=== PATIENT | female | born 1945 | race Caucasian/White ===

== ENCOUNTER 2016-07-17 09:47 | Observation (INO) | payer MEDICARE ==
[2016-07-17 10:26] LABS: BASOPHILS 0.5 % (0.0-2.0); EOSINOPHILS 1.9 % (0.0-6.0); EOSINOPHILS# 0.1 X 10^3uL (0.0-0.4); HEMATOCRIT 36.7 % (36.0-48.0); HEMOGLOBIN 12.5 g/dL (12.0-16.0); LYMPHOCYTES 30.4 % (20.0-40.0); LYMPHOCYTES# 2.3 X 10^3uL (0.8-3.8); MEAN CELL VOLUME 90.8 fL (80.0-100.0); MEAN CORPUSCULAR HEMOGLOBIN 30.9 pg (29.0-35.0); MEAN PLATELET VOLUME 8.3 fL (7.4-10.4); MONOCYTES 7.9 % (2.0-10.0); MONOCYTES# 0.6 X 10^3uL (0.2-1.0); NEUTROPHILS 59.3 % (54.0-75.0); NEUTROPHILS# 4.5 X 10^3uL (2.6-6.7); PLATELET COUNT 300 X 10^3uL (130-440); RED BLOOD COUNT 4.04 X 10^6uL (4.20-6.10); RED CELL DISTRIBUTION WIDTH 12.8 % (11.5-14.5); WHITE BLOOD COUNT 7.5 X 10^3uL (3.9-10.7)
[2016-07-17 10:37] LABS: BLOOD UREA NITROGEN 14 mg/dL (7-17); CALCIUM 8.9 mg/dL (8.4-10.2); CHLORIDE 112 mmol/L (98-107); CREATININE 0.8 mg/dL (0.5-1.0); EST GLOMERULAR FILTRATION RATE > 60 mL/min; GLUCOSE 103 mg/dL (70-100); POTASSIUM 3.7 mmol/L (3.5-5.1); SODIUM 144 mmol/L (137-145)
[2016-07-17 10:50] LABS: TROPONIN I < 0.012 ng/mL (0.00-0.034)
[2016-07-17] MEDS ORDERED: FUROSEMIDE 20 MG/2 ML VIAL ONE ×2 (11:24→19:46)
--- NOTE | 2016-07-17 11:45 | RADIOLOGY REPORT ---
A limited single portable view of the chest is compared with prior film dated . The cardiac silhouette is stable and within normal limits. Central pulmonary vasculature is prominent. Patchy densities are seen at the left lung base. No fluid or pneumothorax is seen. IMPRESSION: 1. Prominent central pulmonary vasculature. 2. Nonspecific changes at the left lung base. Infiltrate versus edema. MTDD
[2016-07-17] MEDS ORDERED: HOME MEDICATION LIST NEEDED 1 EA EACH MC ONE (13:34)
--- NOTE | 2016-07-17 14:05 | ER PHYSICIAN DOCUMENTATION ---
Physician Documentation [facility] Name:Renay Kaufman Age:70 yrs Sex:Female :1945 Arrival Date:07/17/2016 Time:09:47 Bed4 Private MD: Alex Woodward Disposition: 07/17 10:39 Critical Care: not applicable. sc Disposition: 07/17/16 14:03 Admit ordered for Meredith Key. Preliminary diagnosis are Hypoxia, CHF (Congestive Heart Failure). - Bed requested for Medical/Surgical. - Condition is Fair. - Problem is an acute exacerbation. - Symptoms have improved. 23 HR OBS Yes HPI: 10:35 This 70 yrs old Female presents to ER via Walk In with complaints of sc Shortness Of Breath. 10:35 The patient has shortness of breath at rest. Onset: The symptom(s)/episode sc began/occurred 7 day(s) ago, and became worse yesterday. Duration: The symptoms are continuous. The patient's shortness of breath is aggravated by coming home to altitude. Associated signs and symptoms: Pertinent positives: non-productive cough, fever. Associated signs and symptoms: Pertinent positives: pedal edema. The patient has been recently seen by a physician: 1 week(s) ago, with similar presenting complaints, hospd for influenza and pneumonia in [place] three days last week. Feet swelling while traveling. Historical: - Home Meds: 1. metoprolol tartrate 25 mg oral tab 2 tabs 2 times per day for Ventricular Rate Control in Atrial Fibrillation 2. Vitamin B-12 oral chew 3. Multiple Vitamins oral tab 4. ginko biloba 5. Fish Oil 300 mg oral cap 6. Colace 100 mg oral cap 1 cap once daily 7. Coumadin 5 mg oral tab 1 tab once daily 8. fluticasone 9. simvastatin 20 mg oral tab 1 tab once daily in the evening 10. Augmentin 875-125 mg oral tab 1 tab every 12 hours 11. Tamiflu 75 mg oral cap 1 cap 2 times per day - PMHx: ATRIAL FIB; DEPRESSION; glucose intolerance; fever; influenza; Hypertension; shortness of breath; ataxia; pyuria; nephrolithiasis; neck pain; acute respiratory failure ; allergic rhinitis; buerger disease; chronic diastolic heart failure; atrial tachycardia; peripheral neuropathy; hyperlipidemia; - PSHx: Appendectomy; Tonsillectomy; inguinal hernia repair; - Tetanus: < 10 years. - Ebola Screening: : Patient negative for fever greater than or equal to 101.5 degrees Fahrenheit, and additional compatible Ebola Virus Disease symptoms. Patient denies exposure to infectious person. Patient denies travel to an Ebola-affected area in the 21 days before illness onset. . - Immunization history: Pneumococcal vaccine is up to date, Flu Vaccine < 1 year Vaccine Information Sheet provided regarding tetanus vaccine, Flu Vaccine Flu Vaccine unknown Vaccine Information Sheet provided Flu Vaccine. - Social history: Smoking status: Patient states was never smoker of tobacco. ROS: 10:37 Constitutional: Negative for fever, chills, and weight loss. sc Eyes: Negative for injury, pain, redness, and discharge. ENT: Negative for injury, pain, and discharge. Neck: Negative for injury, pain, and swelling. Cardiovascular: Negative for chest pain, palpitations, and edema. Abdomen/GI: Negative for abdominal pain, nausea, vomiting, diarrhea, and constipation. Back: Negative for injury and pain. MS/Extremity: Negative for injury and deformity. Skin: Negative for injury, rash, and discoloration. 10:37 Neuro: Negative for headache, weakness, numbness, tingling, and seizure. sc 10:37 Respiratory: Positive for cough, dyspnea on exertion, shortness of breath. Exam: Head/Face: Normocephalic, atraumatic. Eyes: Pupils equal round and reactive to light, extra-ocular motions intact. Lids and lashes normal. Conjunctiva and sclera are non-icteric and not injected. Cornea within normal limits. Periorbital areas with no swelling, redness, or edema. ENT: Nares patent. No nasal discharge, no septal abnormalities noted. Tympanic membranes are normal and external auditory canals are clear. Oropharynx with no redness, swelling, or masses, exudates, or evidence of obstruction, uvula midline. Mucous membranes moist. Neck: Trachea midline, no thyromegaly or masses palpated, and no cervical lymphadenopathy. Supple, full range of motion without nuchal rigidity, or vertebral point tenderness. No meningismus. Chest/axilla: Normal chest wall appearance and motion. Nontender with no deformity. No lesions are appreciated. Abdomen/GI: Soft, non-tender, with normal bowel sounds. No distension or tympany. No guarding or rebound. No evidence of tenderness throughout. Back: No spinal tenderness. No costovertebral tenderness. Full range of motion. Skin: Warm, dry with normal turgor. Normal color with no rashes, no lesions, and no evidence of cellulitis. 10:38 Neuro: Awake and alert, GCS 15, oriented to person, place, time, and situation. sc Cranial nerves II-XII grossly intact. Motor strength 5/5 in all extremities. Sensory grossly intact. Cerebellar exam normal. Normal gait. 10:38 Constitutional: The patient appears in no acute distress, alert, awake, lethargic. 10:38 Cardiovascular: Rate: normal, Rhythm: regular. 10:38 Respiratory: moderate respiratory distress is noted, Respirations: tachypnea, Breath sounds: decreased breath sounds, that are mild, are scattered. Vital Signs: 09:56 BP 141 / 87; Pulse 74; Resp 20; Temp 97.8; Pulse Ox 78% on R/A; Weight 63.5 kg; Height lp 5 ft. 0 in. (152.40 cm); Pain 0/10; 09:57 Pulse Ox 92% on 3 lpm NC; lp 10:02 BP 153 / 76 (auto/); lp 10:10 Pulse 61 MON; Resp 16; Pulse Ox 90% ; lp 11:00 BP 158 / 86 (auto/); lp 11:05 Pulse 63 MON; Resp 15; Pulse Ox 90% ; lp 12:00 BP 155 / 87 (auto/); lpr 12:05 Pulse 59 MON; Resp 15; Pulse Ox 94% ; lpr 12:30 Pulse Ox 66% on R/A; tg 13:00 BP 161 / 91 (auto/); lpr 13:05 Pulse 54 MON; Resp 20; Pulse Ox 90% ; lpr 13:37 BP 160 / 90; Pulse 58; Resp 20; Pulse Ox 94% on 4 lpm NC; lpr 09:56 Body Mass Index 27.34 (63.50 kg, 152.40 cm) lp 12:30 Pt removed O2 for 3 minutes while using the bathroom. Asymptomatic tg MDM: 10:00 Patient medically screened. sc 10:39 Differential diagnosis: CHF exacerbation, Chronic Obstructive Pulmonary Disease sc pneumonia, pulmonary edema, Pulmonary Embolism. Antibiotic administration: Not indicated. Data reviewed: vital signs, nurses notes, old medical records, lab test result(s), radiologic studies, and as a result, I will continue to observe the patient. Data interpreted: Pulse oximetry: on room air is 78 %. Counseling: I had a detailed discussion with the patient and/or guardian regarding: the historical points, exam findings, and any diagnostic results supporting the discharge/admit diagnosis, lab results, radiology results, the need for further work-up and treatment in the hospital. 10:56 ECG:. id 11:31 Physician consultation: Meredith Key MD was called at 11:31, was contacted at 11:31, id regarding admission, to the floor, and will see patient in ED, shortly. 13:35 EKG attached [facility] 07/17 10:40 Order name: BASIC METABOLIC PANEL [facility] 07/17 10:51 Interpretation: Normal Except: CHLORIDE 112; GLUCOSE 103. id 07/17 10:49 Order name: CBC AUTO DIF, MDIF/RMOR IF IND [facility] 07/17 10:51 Interpretation: Normal. id 07/17 10:50 Order name: BNP,NT-PRO [facility] 07/17 10:51 Interpretation: Abnormal: BNP,NT-PRO 2550. id 07/17 10:50 Order name: TROPONIN I; Complete Time: 11:19 [facility] 07/17 11:18 Interpretation: Normal: Normal. id 07/17 10:57 Order name: DDIMER; Complete Time: 11:19 [facility] 07/17 11:18 Interpretation: Abnormal: DDIMER 345; normal CT PA last week. id 07/17 11:08 Order name: PROTIME/INR; Complete Time: 11:19 [facility] 07/17 11:19 Interpretation: Normal: anticoagulated. id 07/17 14:44 Order name: HEPATIC PANEL [facility] 07/17 16:55 Order name: TROPONIN I [facility] 07/17 22:23 Order name: TROPONIN I [facility] 07/18 06:05 Order name: CBC AUTO DIF, MDIF/RMOR IF IND [facility] 07/18 06:11 Order name: PROTIME/INR [facility] 07/18 06:29 Order name: COMPREHENSIVE METABOLIC PANEL [facility] 07/18 06:29 Order name: BNP,NT-PRO [facility] 07/17 10:29 Order name: CHEST; SINGLE VIEW [id number] [facility] 07/17 12:18 Order name: CHEST; SINGLE VIEW [id number] [facility] 07/18 09:00 Order name: US ABDOMEN, COMPLETE [id number] [facility] 07/17 10: Order name: 12-lead EKG; Complete Time: : id 07/17 10: Order name: Continuous Cardiac Monitoring; Complete Time: id 07/17 10: Order name: I & O; Complete Time: id 07/17 10: Order name: Iv Saline Lock; Complete Time: id 07/17 10: Order name: Oxygen; Complete Time: id 07/17 10: Order name: Pulse Ox Continuous; Complete Time: id EC: Rate is 63 beats/min. Rhythm is regular. QRS [place] is Normal. MA interval is normal. QRS sc interval is normal. QT interval is normal. No Q waves. T waves are Normal. No ST changes noted. Clinical impression: Normal ECG. Interpreted by me. Reviewed by me. Dispensed Medications: 11:13 Drug: Lasix 20 mg; Route: IVP; Site: left antecubital; lp 11:41 Follow up: Response: No adverse reaction; No change in condition lp Signatures: Awilda James RN RN lp Alex Marcos MD MD id Celina Singleton RN RN lpr
--- NOTE | 2016-07-17 14:05 | ER NURSING DOCUMENTATION ---
Nurse's Notes [facility] Name:Renay Kaufman Age:70 yrs Sex:Female :1945 Arrival Date:07/17/2016 Time:09:47 Bed4 Private MD: Diagnosis:Hypoxia;CHF (Congestive Heart Failure) Presentation: 07/17 09:56 Acuity: NICK 2 lp 10:10 Presenting complaint: Patient states: SOB. Transition of care: Home. lp 10:10 Method Of Arrival: Private Vehicle lp Triage Assessment: 10:20 General: Appears in no apparent distress, Behavior is appropriate for age. Pain: Denies lp pain. EENT: No deficits noted. Neuro: Level of Consciousness is awake, alert, Oriented to person, place, time, event, Deputy Court Clerk are equal bilaterally Moves all extremities. Gait is steady, Speech is normal. Cardiovascular: Heart tones S1 S2 Reports None Rhythm is sinus rhythm with unifocal PVCs. Respiratory: Airway is patent Trachea midline Respiratory effort is labored, Respiratory pattern is regular, symmetrical, Breath sounds with crackles in left posterior lower lobe and right posterior lower lobe Reports shortness of breath at rest on exertion cough that is productive, Onset: The symptoms/episode began/occurred 1 week ago, the patient has severe shortness of breath. GI: No deficits noted. : No deficits noted. Derm: No deficits noted. Musculoskeletal: No deficits noted. Historical: - Home Meds: 1. metoprolol tartrate 25 mg oral tab 2 tabs 2 times per day for Ventricular Rate Control in Atrial Fibrillation 2. Vitamin B-12 oral chew 3. Multiple Vitamins oral tab 4. ginko biloba 5. Fish Oil 300 mg oral cap 6. Colace 100 mg oral cap 1 cap once daily 7. Coumadin 5 mg oral tab 1 tab once daily 8. fluticasone 9. simvastatin 20 mg oral tab 1 tab once daily in the evening 10. Augmentin 875-125 mg oral tab 1 tab every 12 hours 11. Tamiflu 75 mg oral cap 1 cap 2 times per day - PMHx: ATRIAL FIB; DEPRESSION; glucose intolerance; fever; influenza; Hypertension; shortness of breath; ataxia; pyuria; nephrolithiasis; neck pain; acute respiratory failure ; allergic rhinitis; buerger disease; chronic diastolic heart failure; atrial tachycardia; peripheral neuropathy; hyperlipidemia; - PSHx: Appendectomy; Tonsillectomy; inguinal hernia repair; - Tetanus: < 10 years. - Ebola Screening: : Patient negative for fever greater than or equal to 101.5 degrees Fahrenheit, and additional compatible Ebola Virus Disease symptoms. Patient denies exposure to infectious person. Patient denies travel to an Ebola-affected area in the 21 days before illness onset. . - Immunization history: Pneumococcal vaccine is up to date, Flu Vaccine < 1 year Vaccine Information Sheet provided regarding tetanus vaccine, Flu Vaccine Flu Vaccine unknown Vaccine Information Sheet provided Flu Vaccine. - Social history: Smoking status: Patient states was never smoker of tobacco. Screenin:23 Infectious Disease Risk None. Abuse screen: Denies threats or abuse. Denies injuries lp from another. Nutritional screening: No deficits noted. Assessment: 10:23 See Triage Assessment done by same RN. Cardiovascular: Capillary refill < 3 seconds lp Heart tones S1 S2. Vital Signs: 09:56 BP 141 / 87; Pulse 74; Resp 20; Temp 97.8; Pulse Ox 78% on R/A; Weight 63.5 kg; Height lp 5 ft. 0 in. (152.40 cm); Pain 0/10; 09:57 Pulse Ox 92% on 3 lpm NC; lp 10:02 BP 153 / 76 (auto/); lp 10:10 Pulse 61 MON; Resp 16; Pulse Ox 90% ; lp 11:00 BP 158 / 86 (auto/); lp 11:05 Pulse 63 MON; Resp 15; Pulse Ox 90% ; lp 12:00 BP 155 / 87 (auto/); lpr 12:05 Pulse 59 MON; Resp 15; Pulse Ox 94% ; lpr 12:30 Pulse Ox 66% on R/A; tg 13:00 BP 161 / 91 (auto/); lpr 13:05 Pulse 54 MON; Resp 20; Pulse Ox 90% ; lpr 13:37 BP 160 / 90; Pulse 58; Resp 20; Pulse Ox 94% on 4 lpm NC; lpr 09:56 Body Mass Index 27.34 (63.50 kg, 152.40 cm) lp 12:30 Pt removed O2 for 3 minutes while using the bathroom. Asymptomatic tg ED Course: 09:48 Patient arrived in ED. ds 09:56 Awilda James RN is Primary Nurse. lp 09:56 Triage completed. lp 10:00 Alex Marcos MD is Attending Physician. sc 10:[address] Marcos notified. lp 10:23 Valuables Remains with patient Patient has correct armband on for positive lp identification. Placed in gown. Bed in low position. Call light in reach. Side rails up X2. Cardiac Monitoring On for Nurse Monitoring only. Pulse Ox - RN Monitoring Only NIBP On - RN Monitoring Only. Warm blanket given. Pillow given. 10:24 Inserted peripheral IV: 20 gauge in left antecubital area and blood collected. lp 10:27 Port Xray Completed. ms 10:29 CHEST; SINGLE VIEW [id number] In Process Unspecified. EDMS 12:42 CHEST; SINGLE VIEW [id number] Sent. ms 12:53 Assisted to bathroom. tg 13:35 EKG attached lpr 14:03 Meredith Key MD is Admitting Physician. ut 07/18 09:00 US ABDOMEN, COMPLETE [id number] In Process Unspecified. EDMS Administered Medications: 07/17 11:13 Drug: Lasix 20 mg; Route: IVP; Site: left antecubital; lp 11:41 Follow up: Response: No adverse reaction; No change in condition lp Output: 11:47 Urine: 350ml (Voided); Total: 350ml. lp 12:12 Urine: 300ml (Voided); Total: 650ml. lp 12:53 Urine: 300ml (Voided); Total: 950ml. tg Outcome: 10:24 Instructed on lp 13:31 Admitted to Med/surg accompanied by nurse. lpr 13:31 Condition: stable 13:31 Report given to Reema Sinclair RN 14:03 Decision to Admit by Provider. sc 14:04 Patient left the ED. lp Signatures: Dispatcher [employer] Bob Silva RN RN tg Pavlish, Lena RN RN lp Srot, Margarette, Reg Reg Alex Maurer MD MD ut [facility] ms Celina Singleton RN RN lpr
[2016-07-17] MEDS ORDERED: O2 HUMIDIFIER 650 ML BOTTLE INHALATION ONE (14:20)
[2016-07-17 14:22] LABS: ALBUMIN 3.7 g/dL (3.5-5.0); BILIRUBIN, DIRECT 0.1 mg/dL (0.0-0.4); BILIRUBIN, TOTAL 0.6 mg/dL (0.2-1.3); TOTAL PROTEIN 7.1 g/dL (6.3-8.2)
--- NOTE | 2016-07-17 16:22 | HISTORY & PHYSICAL ---
DATE OF ADMISSION: 07/17/16 ATTENDING PHYSICIAN: Meredith Key MD ACCOUNTING MACHINE SERVICER: William Coleman MD CHIEF COMPLAINT: Shortness of breath. HISTORY OF PRESENT ILLNESS: This is a 70-year-old female with a history of atrial fibrillation, diastolic congestive heart failure and recent admission in [place] for pneumonia and influenza who presented to the Emergency Room with complaints of shortness of breath. She was admitted to the ICU in [place], [place] for 3 days with both pneumonia and influenza. She was discharged home. She did not require oxygen upon discharge from the hospital. She travelled from [place] back to [place] last night. She states that she began having increasing shortness of breath on the plane ride from [place] to [place] with a development of swelling of her face, bilateral upper extremities and bilateral lower extremities. She states that she did not sleep well last night. She had paroxysmal nocturnal dyspnea and orthopnea. She had significant increased shortness of breath this morning and came to the Emergency Room. She states that she has had a chest tightness since her admission in [place] which has not necessarily improved. REVIEW OF SYSTEMS: She has had a headache. She is no longer having sinus pressure, sore throat, or ear pain. She has had significant rhinorrhea which is improving. Her cough is mostly dry. No palpitations. She states that she had recurrence of her atrial fibrillation with rapid ventricular response approximately 2-3 weeks ago and this episode lasted 1-2 hours. She is no longer having fevers, chills and sweats. No abdominal pain. She has had some nausea but no vomiting. No diarrhea or constipation. She is not having any calf tenderness. She states that she feels much better in the Emergency Room now prior to her admission than when she was at home this morning. PAST MEDICAL HISTORY 1. Paroxysmal atrial fibrillation. 2. History of acute respiratory failure with hypoxemia requiring admission at [facility] 09/2015. 3. Chronic diastolic heart failure. 4. Echocardiogram on 10/09/15 with ejection fraction 60-65% with grade I diastolic dysfunction. 5. Impaired glucose tolerance with hemoglobin A1C 5.9. 6. Hyperlipidemia. 7. Hypertension. 8. Paroxysmal atrial tachycardia. 9. Sleep dysfunction with arousal disturbance. 10. Bilateral cataracts. 11. Nocturnal hypoxemia 08/2014 nocturnal pulse oxygenation shows less than or equal to 88% for 10 minutes and 40 seconds. However, she has never used nocturnal oxygen. 12. Peripheral neuropathy. 13. Osteopenia. 14. Buerger disease. 15. Chronic cough. 16. Allergic rhinitis. PAST SURGICAL HISTORY 1. Laparoscopic appendectomy 10/03/[address] Gandhi. 2. Tonsillectomy age 3. 3. Breast biopsy with benign pathology 2003, status post bilateral PE tubes as a child. 4. Inguinal laparoscopic hernia repair 2009. MEDICATIONS Coumadin 5 mg daily. Metoprolol ER 25 mg 2 tablets daily. Simvastatin 20 mg at bedtime. Flonase 2 squirts each nostril once daily. Multivitamin daily. B-complex daily. Colace 100 mg daily. Fish oil, 1 tablet twice daily. Gingko Biloba 120 mg daily. ALLERGIES: No known drug allergies. SOCIAL HISTORY: She was in 2000. of myocardial infarction. She is now remarried to Jerald Gallagher. She is a former smoker who quit October 2013. Smoked up to 1-1/2 packs per day since the age of 20. Drinks 1-1/2 glasses of wine daily. She is still driving. She is a summer resident. She lives in [place], [place] during the winter. She has 2 daughters, one of who lives here in [facility] and one who lives in [place]. 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 DATA: Basic metabolic panel shows chloride 112, nonfasting glucose 103, otherwise unremarkable. CBC unremarkable. BNP elevated 2,550. Prior BNP 09/2015 was elevated at 5,030 with respiratory failure. Troponin negative. D-Dimer elevated at 345. Protime 35.9, INR 3.0. IMAGING: Chest x-ray shows prominent central pulmonary vascular nonspecific changes at left lung base. Infiltrate versus edema. EKG: Shows normal sinus rhythm with no acute ST-T wave changes. PHYSICAL EXAMINATION VITAL SIGNS: Temperature 97.8, pulse is 74, respiratory rate 20, blood pressure 141/87. She was initially 78% on room air and 92% on 4 liters per nasal cannula. She dropped to 88% with sitting forward and talking and dropped into the 60s with ambulating to the bathroom. She is currently 92% on 2.5 liters here on the floor. GENERAL: This is a very pleasant female who is in mild respiratory distress when speaking in full sentences. Of note, I examined her twice, her exam greatly improved 1-1/2 hours later after diuresis of 1 liter of urine. HEENT: Her face appears puffy. Sclerae are clear. Pupils are equally round and reactive to light. Extraocular movements are intact. Her TMs are clear. Her nares are clear. Her oropharynx is clear. NECK: Her neck is supple with no carotid bruits. No lymphadenopathy. No jugular venous distention. LUNGS: Very distant. Could barely hear heart sounds even when lying patient flat ; however, after diuresis, lung aeration is improved with diffuse rales throughout but with improved aeration. She has no E to A changes. No wheezes. HEART: Regular rate and rhythm without any murmurs, rubs or gallops. ABDOMEN: Soft, nontender, nondistended with good bowel sounds and no masses or hepatosplenomegaly. EXTREMITIES: Warm. She has trace to 1+ edema of bilateral lower extremities and upper extremities trace diffuse nonpitting edema. As above edema is improved after diuresis. NEUROLOGIC: Alert and oriented x3. Cranial nerves 2-12 are grossly intact without focal deficits. Her motor, sensation and DTRs are intact. ASSESSMENT: This is a 70-year-old female who presents with acute on chronic diastolic congestive heart failure exacerbation, resolving left lower infiltrate and influenza. PLAN 1. Fluids, electrolytes and nutrition. Will place patient on fluid restriction. Continue diuresis. Recheck BNP in the morning. Check LFTs. 2. Cardiovascular. Cardiology consultation. Continue telemetry, EKG in the morning. Continue to rule out with serial troponins. Continue beta-sanford and Coumadin. Continue statin. Daily PT INR. 3. Respiratory. She has finished her Augmentin and Tamiflu dosages. RT consult. Continue oxygen and wean as tolerated. Will need outpatient nocturnal oximetry study. I suspect she requires nocturnal oxygen. Incentive spirometer. 4. Disposition. She is a full COR, full tube. Admit to observation. Anticipate 1 -2 hospital stay. Copies to: MD NERI Davis
--- NOTE | 2016-07-17 16:52 | CONSULTATION ---
DATE OF CONSULTATION: 07/17/16 FINANCE ASSISTANT: William Coleman MD IDENTIFYING DATA: A 70-year-old female. REASON FOR CONSULTATION: Heart failure. HISTORY OF PRESENT ILLNESS: This is a very pleasant female who is well known to our service. I saw her back 06/20/16. At that time she had a diagnosis of paroxysmal atrial fibrillation along with grade I diastolic dysfunction. Patient travelled up to [place]. She developed pneumonia and was admitted. According to her she received a fair amount of fluids. She was subsequently discharged from the hospital and flew back last night. At the time of discharge , she noted increasing shortness of breath along with increasing lower extremity edema. She denied any chest pain. Last night she had difficulty sleeping because of shortness of breath. Her fevers and chills have subsequently resolved. In the Emergency Department she received 1 dose of IV Lasix. She states that her edema has improved and shortness of breath has also improved. She has no other cardiac complaints. PAST MEDICAL HISTORY, ILLNESSES AND SURGERIES 1. Hypertension. 2. Hyperlipidemia. 3. Paroxysmal atrial fibrillation. ALLERGIES AND MEDICATIONS: Please refer to medication reconciliation list. SOCIAL HISTORY: Denies tobacco. FAMILY HISTORY: Negative for premature cardiovascular disease. REVIEW OF SYSTEMS: Remaining comprehensive review of systems is negative. PHYSICAL EXAMINATION CONSTITUTIONAL: Well-nourished, well-developed in no acute distress. VITAL SIGNS: Blood pressure 161/91 with a pulse of 56 and regular. Respiratory rate 18. Saturating 92% on 4 liters. HEENT: Normocephalic, atraumatic. Ears, eyes, nose and throat are unremarkable with no masses or lesions. NECK: Unable to appreciate jugular venous distention at the present time. Supple with no masses or lesions. CARDIOVASCULAR: Heart sounds are distant although regular rate and rhythm. Unable to auscultate an S3 and/or S4. RESPIRATORY: Clear to auscultate bilaterally without wheezes, crackles or rhonchi. ABDOMEN: Bowel sounds present. Nontender, nondistended. No hepatosplenomegaly. EXTREMITIES: No clubbing, cyanosis and/or edema. Perfused. NEUROLOGICAL: No gross motor or sensory deficits. PSYCH: Alert and oriented x3. LABORATORY DATA: No EKG was performed. It has been ordered. White blood cell count 7.5, hemoglobin 12.5, platelet count of 300. D-Dimer is 345. INR is 3.0. Sodium 144, potassium 3.0, BUN of 14, creatinine 0.8. Pro-BNP is 2,550. Troponin is undetectable. IMAGING: Chest x-ray reveals prominent central vasculature and some changes in the left lung base, possibly infiltrate versus edema. ASSESSMENT 1. Acute diastolic congestive heart failure secondary to fluid overload from recent hospitalization. Patient stated that she received a large amount of fluid. 2. Hypertension. 3. Hyperlipidemia. 4. Paroxysmal atrial fibrillation pursuing rhythm control and anticoagulated. Patient did have a bout of paroxysmal atrial fibrillation during her previous hospitalization. 5. Echocardiogram performed in September 2015 demonstrated normal left ventricular size and function with only grade I diastolic dysfunction. 6. Stress echocardiogram performed on 06/2016 demonstrated reduced functional capacity with no evidence of ischemia and/or infarction. PLAN: I do believe patient received a large amount of fluid resuscitation during her hospitalization. She has responded to IV Lasix. I would recommend to continue with IV Lasix later this afternoon and tomorrow morning. Will go ahead and obtain an echocardiogram to reassess left ventricular size and function. Copies to: Dr. Shahid HE
[2016-07-17] MEDS ORDERED: DOCUSATE SODIUM 100 MG CAPSULE PO PRN (17:58)
[2016-07-17] MEDS ORDERED: FUROSEMIDE 20 MG/2 ML VIAL IV ONE ×2 (18:01→18:02)
[2016-07-17] MEDS ORDERED: WARFARIN SODIUM 5 MG TABLET PO SCH (19:00)
[2016-07-17] MEDS ORDERED: SIMVASTATIN 20 MG TABLET PO SCH (21:00)
[2016-07-17] MEDS: Omega-3 Fatty Acids [Fish Oil] 300 MG PO SCH (21:08)
[2016-07-18 06:01] LABS: BASOPHILS 0.2 % (0.0-2.0); EOSINOPHILS 2.5 % (0.0-6.0); EOSINOPHILS# 0.2 X 10^3uL (0.0-0.4); HEMATOCRIT 35.5 % (36.0-48.0); HEMOGLOBIN 12.4 g/dL (12.0-16.0); LYMPHOCYTES# 2.2 X 10^3uL (0.8-3.8); MEAN CELL VOLUME 89.9 fL (80.0-100.0); MEAN CORPUSCULAR HEMOGLOBIN 31.5 pg (29.0-35.0); MEAN PLATELET VOLUME 8.3 fL (7.4-10.4); MONOCYTES 7.9 % (2.0-10.0); MONOCYTES# 0.5 X 10^3uL (0.2-1.0); NEUTROPHILS 57.4 % (54.0-75.0); NEUTROPHILS# 3.8 X 10^3uL (2.6-6.7); PLATELET COUNT 273 X 10^3uL (130-440); RED BLOOD COUNT 3.94 X 10^6uL (4.20-6.10); RED CELL DISTRIBUTION WIDTH 12.7 % (11.5-14.5); WHITE BLOOD COUNT 6.7 X 10^3uL (3.9-10.7)
[2016-07-18 06:05] LABS: ALBUMIN 3.5 g/dL (3.5-5.0); ALKALINE PHOSPHATASE 70 U/L (38-126); ALT 70 U/L (9-52); AST 53 U/L (14-36); BILIRUBIN, TOTAL 0.7 mg/dL (0.2-1.3); BLOOD UREA NITROGEN 16 mg/dL (7-17); CALCIUM 8.4 mg/dL (8.4-10.2); CHLORIDE 107 mmol/L (98-107); CREATININE 0.7 mg/dL (0.5-1.0); EST GLOMERULAR FILTRATION RATE > 60 mL/min; GLUCOSE 94 mg/dL (70-100); POTASSIUM 3.3 mmol/L (3.5-5.1); SODIUM 143 mmol/L (137-145); TOTAL PROTEIN 6.9 g/dL (6.3-8.2)
[2016-07-18 06:10] LABS: INR 3.1
[2016-07-18] MEDS ORDERED: FUROSEMIDE 20 MG/2 ML VIAL IV ONE (07:00)
--- NOTE | 2016-07-18 08:15 | DC SUMMARY: IM Note ---
Discharge Summary: IM/Peds Provider: Date of Admission: 07/17/16 Admitting Provider: FERNANDO ALBERT MD Attending Provider: FERNANDO ALBERT MD Discharging Provider: TEODORA BHAT MD Primary Care Provider: Discharge Date: 07/18/16 Consults: 07/17/16 14:09 Cardiology Consult [CONS] Routine Reason: New onset CHF; hypoxemia. Pharmacy Consult [CONS] Routine Reason: Medication reconciliation. - Diagnosis (1) Diastolic dysfunction with acute on chronic heart failure Status: Acute (2) Acute hypokalemia Status: Acute (3) Abnormal LFTs (liver function tests) Status: Acute Hospital Course: Patient was admitted after arriving back at altitude from a trip to [place]. During that trip she had been hospitalized with acute pneumonia and influenza, and was treated accordingly with antibiotics and Tamiflu. She began noting shortness of breath and limb swelling on her flight to [place], and became increasingly short of breath after arriving back home in [place], so came to the ED. See admission history and physical for full details. Patient felt much better after the administration of IV diuresis, and on the morning of discharge, her lungs were clear, other than a few scattered rhonchi. BNP-pro is mildly elevated at 2,500, improved to 1,240 on the day of discharge. Troponin was negative. EKG showed no ischemia or arrhythmia. Patient had a negative stress echo in 2016, and a negative Persantine Thallium test (in [place],) 01/2016, after an admission for chest pain. She was seen in consultation in [facility] by Cardiology, Dr. Coleman. Patient has a history of paroxysmal atrial fibrillation, and is anticoagulated with an INR of 3.1 today. Her echocardiogram showed Grade II diastolic dysfunction, elevated left atrial pressure, normal RV and PA pressures, and normal LV structure, with LVEF of 60-65%. There was mild to moderate mitral regurgitation. Chest xray showed some residual evidence of her recent pneumonia. She was discharged on low dose Furosemide orally at 20mg daily, with a BMP ordered to be done in 2 days, and and INR the same day, with lowering of her Warfarin dose to 2.5mg daily. Patient has a history of heavy tobacco use, which she quit entirely in 2013. However, she is requiring oxygen currently and required nocturnal oxygen in the past at altitude. When fully recovered from her recent pneumonia, I would recommend PFTs to assess the potential of COPD. Patient was upset when I suggested this, and I explained that I was not telling her she had COPD, just looking for ways to explain her hypoxia and to make sure she is treated appropriately. She potentially had a CT of her chest in [place], if that record can be obtained, otherwise high resolution CT of the chest to assess for emphysematous changes or other process might be helpful in explaining her hypoxia. She was discharged on 2L continuous oxygen. An additional issue was the finding of elevated ALT and AST, both mildly increased, for which abdominal ultrasound was ordered, and was negative. Alpha- 1-antitrypsin testing was ordered, results pending, given the combination of this with her respiratory problems. However, there is the potential for passive congestion from CHF as the cause. If the problem persists, then additional work up should be done. In summary, the patient appears to have been admitted with mild CHF, probably multifactorial, due a history of diastolic dysfunction, return to altitude, recent pneumonia/influenza, fluid overload due to IV fluid administration, and with marked hypoxia suggesting the potential of underlying lung disease such as COPD. She is much improved at the time of discharge, and will follow up with her PCP next week. - Time Spent with Patient Total time spent providing and/or coordinating discharge services: Time with patient DS: Greater than 30 minutes (as tolerated) Discharge - Patient/Caregiver Discharge Instructions Diet: Low sodium, 2 L fluid restriction Follow up: FERNANDO ALBERT MD [Primary Care Provider] - 07/25/16 4:00 pm Overall discharge status: patient is progressing back to baseline Home Medications: Saline Nasal Gel [[place] Saline Nasal Gel] 1 applic TOPICAL Q2H PRN #1 renny PRN Reason: Dry Nose Warfarin Sodium [Coumadin*] 2.5 mg PO DAILY@1600 #30 tablet Furosemide [Lasix*] 20 mg PO DAILY #30 tablet Potassium Chloride ER [Micro-K 10 Meq*] 10 meq PO DAILY #30 tablet Orders: Home Oxygen Location: Determined By Patient BASIC METABOLIC PANEL [CHEM] Time Frame: 2 Days, Facility: [facility], Location: LABORATORY INR W/ CAPI DRAW [HEM] Time Frame: 2 Days, Location: Determined By Patient Disposition: HOME, SELF-CARE Discharge Summary Data - Medication History Medication History: Home Medications Docusate Sodium [Colace*] 100 mg PO DAILY PRN 07/17/16 Fluticasone Nasal [Flonase Nasal [place]*] 2 spr NASAL DAILY 07/17/16 Ginkgo Biloba [place] Extract [Ginkgo Biloba] 120 mg PO DAILY 07/17/16 Multivitamins,Therapeutic [Thera Multivitamin*] 1 tab PO DAILY 07/17/16 [place]-3 Fatty Acids [Fish Oil] 300 mg PO BID 07/17/16 Simvastatin [Simvastatin*] 20 mg PO HS 07/17/16 Vitamin B Complex [B Complex] 1 each PO DAILY 07/17/16 Warfarin Sodium [Coumadin*] 5 mg PO DAILY 07/17/16 metoprolol SUCC ER [Toprol Xl*] 100 mg PO DAILY 07/17/16 Inpatient Medications 07/17/16 17:58 Docusate Sodium [Colace] 100 mg PO DAILY PRN 07/17/16 19:00 Warfarin Sodium [Coumadin] 5 mg PO DAILY@1600 07/17/16 21:00 [place]-3 Fatty Acids [Fish Oil] 300 mg PO BID Simvastatin [Zocor] 20 mg PO HS 07/18/16 09:00 Fluticasone Nasal [Flonase Nasal [place]] 2 spray NASAL DAILY Ginkgo Biloba [place] Extract [Ginkgo Biloba] 120 mg PO DAILY Multivitamins,Therapeutic [Thera] 1 tab PO DAILY Potassium Chloride ER [K-Dur] 40 meq PO DAILY Vitamin B Complex [Stress B Complex] 1 tab PO DAILY metoprolol SUCC ER [topROL XL] 100 mg PO DAILY Procedures and tests throughout hospitalization: Completed Lab Orders 07/17/16 10:30 HEPATIC PANEL [CHEM] Stat 07/17/16 16:05 trop [TROPONIN I] [CHEM] Stat 07/17/16 21:55 TROPONIN I [CHEM] Stat 07/18/16 05:40 BNP,NT-PRO [CHEM] Routine CBC AUTO DIF, MDIF/RMOR IF IND [HEM] AMDRAW PROTIME/INR [HEM] Routine cmp [COMPREHENSIVE METABOLIC PANEL] [CHEM] AMDRAW Pending Orders 07/17/16 14:00 Telemetry monitoring CONTINUOUS TELE 07/17/16 14:09 Cardiology Consult [CONS] Routine Pharmacy Consult [CONS] Routine 07/17/16 14:33 Respiratory Therapy Consult [RT] Routine 07/17/16 14:34 Incentive Spirometry Q1H Teach: Incentive Spirometry . 07/17/16 15:16 Echo [Echocardiogram] [CARDIO] Routine 07/17/16 17:58 Docusate Sodium [Colace] 100 mg PO DAILY PRN 07/17/16 19:00 Warfarin Sodium [Coumadin] 5 mg PO DAILY@1600 07/17/16 21:00 [place]-3 Fatty Acids [Fish Oil] 300 mg PO BID Simvastatin [Zocor] 20 mg PO HS 07/17/16 Dinner Fluid Restriction 07/18/16 07:00 EKG ONCE US ABDOMEN, COMPLETE [id number] [US] Routine 07/18/16 09:00 Fluticasone Nasal [Flonase Nasal [place]] 2 spray NASAL DAILY Ginkgo Biloba [place] Extract [Ginkgo Biloba] 120 mg PO DAILY Multivitamins,Therapeutic [Thera] 1 tab PO DAILY Potassium Chloride ER [K-Dur] 40 meq PO DAILY Vitamin B Complex [Stress B Complex] 1 tab PO DAILY metoprolol SUCC ER [topROL XL] 100 mg PO DAILY 07/18/16 Breakfast NPO [Nothing By Mouth] [DIET] 07/19/16 05:00 PT/INR [PROTIME/INR] [HEM] Routine Labs on day of discharge: Labs from last 24 hours 07/18/16 07/18/16 07/17/16 05:40 05:00 21:55 WBC 6.7 RBC 3.94 L Hgb 12.4 Hct 35.5 L MCV 89.9 MCH 31.5 MCHC 35.0 RDW 12.7 Plt Count 273 MPV 8.3 Neutrophils % 57.4 Lymphocytes % 32.0 Eosinophils % 2.5 Basophils % 0.2 Neutrophils # 3.8 Lymphocytes # 2.2 Monocytes 7.9 Monocytes # 0.5 Eosinophils # 0.2 Basophils # 0.0 PT 36.9 H Cancelled INR 3.1 Cancelled Sodium 143 Potassium 3.3 L Chloride 107 Carbon Dioxide 30 BUN 16 Creatinine 0.7 GFR Calculation > 60 Glucose 94 Calcium 8.4 Total Bilirubin 0.7 AST 53 H ALT 70 H Alkaline Phosphatase 70 Troponin I < 0.012 NT-Pro-B Natriuret Pep 1240 H Total Protein 6.9 Albumin 3.5 Albumin/Globulin Ratio 1.0 07/17/16 16:05 WBC RBC Hgb Hct MCV MCH MCHC RDW Plt Count MPV Neutrophils % Lymphocytes % Eosinophils % Basophils % Neutrophils # Lymphocytes # Monocytes Monocytes # Eosinophils # Basophils # PT INR Sodium Potassium Chloride Carbon Dioxide BUN Creatinine GFR Calculation Glucose Calcium Total Bilirubin AST ALT Alkaline Phosphatase Troponin I < 0.012 NT-Pro-B Natriuret Pep Total Protein Albumin Albumin/Globulin Ratio IM: Discharge Physical Exam - I&O/Vital Signs I&O: Intake & Output 07/17/16 07/18/16 07/18/16 21:59 05:59 13:59 Intake Total 500 Output Total 200 1120 Balance 300 -1120 Weight 60.691 kg Intake: Oral 500 Output: Urine 200 1120 Other: Urine Appearance Clear Clear Urine Color Yellow Pale Straw Voiding Method Toilet Vital Signs: Last Vital Signs Temp 37.1 C 07/18/16 07:00 Pulse 57 L 07/18/16 07:00 Resp 12 07/18/16 07:00 BP 157/73 07/18/16 07:00 Pulse Ox 92 07/18/16 07:00 Oxygen Flow Rate 4 Oxygen Delivery Method Nasal Cannula - Constitutional General appearance: Present: average body habitus - Head Head exam: Present: normal inspection - Eye Eye exam: Present: EOMI. Absent: conjunctival injection Pupils: Present: unequal - ENT ENT exam: Present: mucous membranes moist - Neck Neck exam: Present: full ROM, normal inspection - Respiratory Respiratory exam: Present: rhonchi (few scattered only) - Cardiovascular Cardiovascular exam: Present: bradycardia, RRR (mild bradycardia) - GI/Abdominal GI/Abdominal exam: Present: normal bowel sounds, soft. Absent: tenderness - Extremities Exam Extremities exam: Absent: calf tenderness, edema - Skin Skin exam: Present: normal color - Allied Health Notes Allied health notes reviewed: nursing, RT
[2016-07-18] MEDS ORDERED: WARFARIN SODIUM 5 MG TABLET PO SCH (08:18)
[2016-07-18] MEDS ORDERED: VITAMIN B COMPLEX 1 TABLET PO SCH (09:00)
[2016-07-18] MEDS ORDERED: FLUTICASONE NASAL 120 SPRAY BTL NASAL SCH (09:00)
[2016-07-18] MEDS ORDERED: POTASSIUM CHLORIDE ER 10 MEQ TABLET PO SCH (09:00)
[2016-07-18] MEDS ORDERED: MULTIVITAMINS THERAPEUTIC 1 TABLET PO SCH (09:00)
[2016-07-18] MEDS ORDERED: GINKGO BILOBA LEAF EXTRACT 120 MG PO SCH (09:00)
[2016-07-18] MEDS ORDERED: POTASSIUM CHLORIDE ER 20 MEQ TABLET PO SCH (09:00)
[2016-07-18] MEDS ORDERED: FUROSEMIDE 20 MG TABLET PO SCH (09:00)
[2016-07-18] MEDS ORDERED: OXYMETAZOLINE 0.05% NASAL 15 SPRAYS/15 ML BTL NASAL ONE (09:58)
--- NOTE | 2016-07-18 10:19 | US REPORT ---
REASON FOR EXAMINATION: Abnormal liver function test. FINDINGS: Routine abdominal ultrasound was performed. The liver and spleen are normal in size and appearance without focal abnormality. The gallbladder and biliary tree appear unremarkable. No stones, wall thickening, duct dilatation or fluid collection is identified. The left kidney appears normal. There is a 2.1 cm simple cyst involving the inferior portion of the right kidney, which otherwise appears unremarkable. Limited images of the pancreas are unremarkable. The abdominal aorta appears normal. A tiny amount of right pleural fluid is incidentally noted. IMPRESSION: 1. There is no ultrasound finding to explain the abnormal liver function tests. 2. A 2.1 cm inferior right renal cyst. 3. A small amount of right pleural fluid. MTDD
[2016-07-18] MEDS: Omega-3 Fatty Acids [Fish Oil] 300 MG PO SCH (10:30)
[2016-07-18] MEDS ORDERED: OXYMETAZOLINE 0.05% NASAL 15 SPRAYS/15 ML BTL NASAL PRN (10:31)
[2016-07-18 11:28] VITALS: BP 156/79; PULSE 58; RESP 16; TEMP 97.7
[2016-07-18 12:00] VITALS: O2SAT 90
[2016-07-18] MEDS ORDERED: WARFARIN SODIUM 2.5 MG TABLET PO SCH (16:00)
== END 2016-07-18 15:38 | disposition home or self-care (01) ==
LOC: ER 09:47 → IN 13:34
PROVIDERS: ADMIT Family Medicine; ATTEND Family Medicine
DX: I11.0 Hypertensive heart disease with heart failure (principal); I50.33 Acute on chronic diastolic (congestive) heart failure; G47.34 Idiopathic sleep related nonobstructive alveolar hypoventilation; I48.2 Chronic atrial fibrillation; E78.5 Hyperlipidemia, unspecified; R73.01 Impaired fasting glucose; I73.1 Thromboangiitis obliterans [Buerger's disease]; M85.89 Other specified disorders of bone density and structure, multiple sites; R05 Cough; Z79.01 Long term (current) use of anticoagulants; Z79.899 Other long term (current) drug therapy
CPT/HCPCS: 36415; 71010; 76700; 80048; 80053; 80076; 82103; 82104; 83880; 84484; 85025; 85379; 85610; 93306; 94664; 94667; 96374; 99285; E0555; G0378; J1940